=== PATIENT | female | born 1955 | race African-American/Black ===

== ENCOUNTER → 2016-10-31 | Outpatient (CLI) | payer MEDICARE, OTHER ==
[~2016-10-31] MED LIST: ALL220TA PO; CHOLMIS5 PO; LISI-363 PO; LORTA5 PO; METO50TA OR
[2016-10-31 11:25] LABS: ALKALINE PHOSPHATASE 93 U/L (45-117); ALT (GPT) 11 U/L (10-53); ANION GAP 9 MEQ/L (5-15); AST (GOT) 10 U/L (15-37); BICARBONATE 25.7 MEQ/L (21.0-32.0); BLOOD UREA NITROGEN 22 MG/DL (7-18); CHLORIDE 107 MEQ/L (98-107); GLOMERULAR FILTRATION RATE 62 ML/MIN (>89); GLUCOSE,FASTING 101 MG/DL (74-99); HDL CHOLESTEROL 62.5 MG/DL (40.0-60.0); LDL CHOLESTEROL 82 MG/DL (0-99); POTASSIUM 3.5 MEQ/L (3.5-5.1); SODIUM (NA) 142 MEQ/L (136-145); TOTAL BILIRUBIN ADULT 0.3 MG/DL (0.2-1.0)
== END ==
LOC: CLAB 10:30
PROVIDERS: ATTEND General Practice
DX: E78.00 Pure hypercholesterolemia, unspecified (principal)
CPT/HCPCS: 36415; 80053; 80061

== ENCOUNTER → 2017-01-14 | Outpatient (CLI) | payer MEDICARE, OTHER ==
[2017-01-14 09:13] LABS: ALT (GPT) 16 U/L (10-53)
[2017-01-14 09:16] LABS: ALKALINE PHOSPHATASE 97 U/L (45-117); HDL CHOLESTEROL 53.8 MG/DL (40.0-60.0); LDL CHOLESTEROL 90 MG/DL (0-99); TOTAL BILIRUBIN ADULT 0.4 MG/DL (0.2-1.0)
[2017-01-14 09:22] LABS: ANION GAP 8 MEQ/L (5-15); BICARBONATE 26.8 MEQ/L (21.0-32.0); BLOOD UREA NITROGEN 24 MG/DL (7-18); CHLORIDE 106 MEQ/L (98-107); GLOMERULAR FILTRATION RATE 83 ML/MIN (>89); GLUCOSE,FASTING 84 MG/DL (74-99); SODIUM (NA) 141 MEQ/L (136-145)
[2017-01-14 09:23] LABS: AST (GOT) 19 U/L (15-37); POTASSIUM 3.8 MEQ/L (3.5-5.1)
== END ==
LOC: CLAB 08:27
PROVIDERS: ATTEND General Practice
DX: E78.00 Pure hypercholesterolemia, unspecified (principal)
CPT/HCPCS: 36415; 80053; 80061

== ENCOUNTER → 2017-05-16 | Outpatient (CLI) | payer MEDICARE, OTHER ==
[2017-05-16 11:23] LABS: ANION GAP 11 MEQ/L (5-15); AST (GOT) 9 U/L (15-37); BICARBONATE 22.3 MEQ/L (21.0-32.0); BLOOD UREA NITROGEN 20 MG/DL (7-18); CHLORIDE 107 MEQ/L (98-107); GLOMERULAR FILTRATION RATE 73 ML/MIN (>89); GLUCOSE,FASTING 96 MG/DL (74-99); POTASSIUM 3.4 MEQ/L (3.5-5.1); SODIUM (NA) 140 MEQ/L (136-145)
[2017-05-16 11:24] LABS: ALT (GPT) 10 U/L (10-53)
[2017-05-16 11:26] LABS: ALKALINE PHOSPHATASE 88 U/L (45-117); HDL CHOLESTEROL 57.9 MG/DL (40.0-60.0); LDL CHOLESTEROL 70 MG/DL (0-99); TOTAL BILIRUBIN ADULT 0.5 MG/DL (0.2-1.0)
== END ==
LOC: CLAB 09:59
PROVIDERS: ATTEND General Practice
DX: E78.00 Pure hypercholesterolemia, unspecified (principal)
CPT/HCPCS: 36415; 80053; 80061

== ENCOUNTER → 2017-08-12 | Outpatient (CLI) | payer MEDICARE, OTHER ==
[2017-08-12 12:54] LABS: ALBUMIN 3.8 GM/DL (3.4-5.0); AST (GOT) 16 U/L (15-37); BLOOD UREA NITROGEN 22 MG/DL (7-18); CALCIUM 9.1 MG/DL (8.5-10.1); CHLORIDE 104 MEQ/L (98-107); CREATININE 1.03 MG/DL (0.50-1.00); GLOMERULAR FILTRATION RATE 66 ML/MIN (>89); GLUCOSE,FASTING 101 MG/DL (74-99); SODIUM (NA) 139 MEQ/L (136-145)
[2017-08-12 12:55] LABS: ALT (GPT) 17 U/L (10-53); CHOLESTEROL 178 MG/DL (120-200)
[2017-08-12 12:57] LABS: ALKALINE PHOSPHATASE 99 U/L (45-117); CHOLESTEROL/ HDL RATIO 2.73 RATIO; LDL CHOLESTEROL 93 MG/DL (0-99); TOTAL BILIRUBIN ADULT 0.6 MG/DL (0.2-1.0); TOTAL PROTEIN 8.2 GM/DL (6.4-8.2); TRIGLYCERIDES 98 MG/DL (42-150)
== END ==
LOC: CLAB 12:21
PROVIDERS: ATTEND General Practice
DX: E78.00 Pure hypercholesterolemia, unspecified (principal)
CPT/HCPCS: 36415; 80053; 80061

== ENCOUNTER → 2018-01-15 | Outpatient (CLI) | payer MEDICARE, OTHER ==
[2018-01-15 10:46] LABS: ALBUMIN 3.5 GM/DL (3.4-5.0); AST (GOT) 11 U/L (15-37); BICARBONATE 27.1 MEQ/L (21.0-32.0); BLOOD UREA NITROGEN 15 MG/DL (7-18); CALCIUM 8.7 MG/DL (8.5-10.1); CHLORIDE 110 MEQ/L (98-107); CHOLESTEROL 154 MG/DL (120-200); CREATININE 0.87 MG/DL (0.50-1.00); GLOMERULAR FILTRATION RATE 80 ML/MIN (>89); GLUCOSE,FASTING 86 MG/DL (74-99); SODIUM (NA) 145 MEQ/L (136-145)
[2018-01-15 10:49] LABS: ALKALINE PHOSPHATASE 87 U/L (45-117); ALT (GPT) 11 U/L (10-53); CHOLESTEROL/ HDL RATIO 2.35 RATIO; HDL CHOLESTEROL 65.3 MG/DL (40.0-60.0); LDL CHOLESTEROL 79 MG/DL (0-99); TOTAL BILIRUBIN ADULT 0.4 MG/DL (0.2-1.0); TOTAL PROTEIN 7.4 GM/DL (6.4-8.2); TRIGLYCERIDES 50 MG/DL (42-150)
== END ==
LOC: CLAB 09:30
PROVIDERS: ATTEND General Practice
DX: E78.00 Pure hypercholesterolemia, unspecified (principal)
CPT/HCPCS: 36415; 80053; 80061